=== PATIENT | male | born 1985 | race Caucasian/White ===

== ENCOUNTER 2024-10-20 20:39 | Emergency (ER) | payer BC, SELFPAY ==
[2024-10-20 20:41] VITALS: BP 171/129; PULSE 87; RESP 18; TEMP 36.2; O2SAT 98
--- NOTE | 2024-10-20 21:33 | W.ED.GENAD ---
Discharge Plan Disposition Patient Disposition: Home Condition: Stable Discharge Details Clinical Impression: Abscess, periapical Primary Care Provider: Ayesha,Local ED Provider: Cassandra Hernandez Home Meds and New Rx's Prescriptions: New amoxicillin-pot clavulanate 875-125 mg tablet 1 tab PO BID 10 Days Qty: 20 0RF No Action gabapentin 600 mg tablet 600 mg PO TID hydroxyzine HCl 25 mg tablet 25 mg PO ONCE lisinopril 5 mg tablet 5 mg PO DAILY citalopram [Celexa] 20 mg tablet 20 mg PO DAILY bupropion HCl 300 mg tablet extended release 24 hr 300 mg PO DAILY Discharge Instructions Instructions: Tooth Abscess (DC) Additional Instructions: You were seen in the emergency department today for evaluation of a dental abscess. In our department you had a full physical examination performed and a dental block. Your abscess was drained and you were started on antibiotics. Please take these medications twice a day until they are gone, even if you start to feel better. You do need to follow-up with your dental provider, I recommend giving them a call tomorrow or Wednesday if they are not open over the weekend. There are unfortunately very few emergency dentists in [place]. Please maintain good hydration and nutrition. Please use therapeutic dosing of Tylenol (acetaminophen) & Advil (ibuprofen) in an alternating fashion as follows: Take 1000mg of Tylenol every 6 hours without missing doses- that is 4 times per day. [place] in between the Tylenol doses, take 600mg of Advil also on a 6 hour schedule, that is also 4 times per day. With this strategy, you will be taking something for fever/pain as often as every 3 hours. The daily maximum dosing of Tylenol is 4000mg, and the daily maximum dosing of Advil is 2400mg. Please note that some common cold medications & prescription pain medications may contain acetaminophen and you need to read OTC drug labels and factor that in to maximum daily doses. Please follow-up with your primary care provider in the next few days to discuss this visit and any symptoms that change, worsen, or persist. Thank you for allowing us to be part of your care. HPI General Mode of arrival: ambulatory. Date/Time Provider Initiated Documentation: 10/20/24 20:47. Limitations to Documentation: no limitations. Information obtained by: patient, family and old records reviewed. HPI Narrative: This is a 39-year-old male patient presenting for evaluation of dental pain and abscess. He reports that his right lower molar has been fractured for several years, he recently got dental insurance back and had a cleaning and since that time has had some increased discomfort. For 24 hours he has noted a significant amount of swelling adjacent to the tooth. He states that he has not had a fever but does feel rundown. He has been able to eat and drink, swallow, and move his eyes and neck. No difficulty or pain with swallowing. He states that he is not currently taking antibiotics but has been using ibuprofen and his home gabapentin for pain management. He was recently started on lisinopril, and his high blood pressure did delay extraction at the oral surgeon with whom he follows. Related Data Home Medications ?Medication ?Instructions ?Recorded ?Confirmed amoxicillin 875 mg-potassium 1 tab PO BID 10 days #20 tabs 10/20/24 clavulanate 125 mg tablet bupropion HCl 300 mg 24 hr tablet, 300 mg PO DAILY 10/20/24 10/20/24 extended release citalopram 20 mg tablet (Celexa) 20 mg PO DAILY 10/20/24 10/20/24 gabapentin 600 mg tablet 600 mg PO TID 10/20/24 10/20/24 hydroxyzine HCl 25 mg tablet 25 mg PO ONCE 10/20/24 10/20/24 lisinopril 5 mg tablet 5 mg PO DAILY 10/20/24 10/20/24 Previous Rx's ?Medication ?Instructions ?Recorded amoxicillin 875 mg-potassium 1 tab PO BID 10 days #20 tabs 10/20/24 clavulanate 125 mg tablet Allergies Allergy/AdvReac Type Severity Reaction Status Date / Time No Known Allergies Allergy Unverified 10/20/24 20:46 General Stated Complaint: DentalOral GUILLAUME: 4 Exam Narrative Exam Narrative: Gen: Awake and alert, in no apparent distress HEENT: Non-icteric sclera, EOMs are full, PERRL. Midface is stable and without swelling, redness, or induration. The patient has an approximately 2 x 1 cm periapical abscess adjacent to tooth #30, otherwise he has fairly good dentition, no other abscesses or dental infections visualized. Floor of mouth is soft, no trismus noted, posterior pharynx unremarkable. Neck: Supple, full range of motion, right sided anterior cervical and submental lymphadenopathy, mild Lungs: No apparent respiratory distress, normal respiratory effort. CV: Appears well perfused, strong distal pulses Abdomen: Non-distended MSK: Moves 4 extremities without apparent limitation in ROM Skin: Visualized skin without rashes, cyanosis. Neuro: Normal Gait, no obvious focal deficits or facial asymmetry. Speaks in full, clear sentences. Psych: Appropriate for situation. Course Vital Signs Vital signs: Vital Signs Temperature 36.2 C L 10/20/24 20:41 Pulse 87 10/20/24 20:41 Respiratory Rate 18 10/20/24 20:41 Blood Pressure 171/129 H 10/20/24 20:41 Pulse Oximetry 98 10/20/24 20:41 Temperature 36.2 C L 10/20/24 20:41 Temperature Source Tympanic 10/20/24 20:41 Pulse 87 10/20/24 20:41 Respiratory Rate 18 10/20/24 20:41 Blood Pressure 171/129 H 10/20/24 20:41 Pulse Oximetry 98 10/20/24 20:41 Oxygen Delivery Method Room Air 10/20/24 20:41 Oxygen Flow Rate 0 10/20/24 20:41 Pain Level 6 10/20/24 20:41 Procedure Abscess Drainage Date of Procedure: 10/20/24 Time of Procedure: 22:15 Provider that performed the procedure: Cassandra Hernandez Patient Consented: Verbally Location of Exam: Oral Indication: Abscess. Local anesthetic: Bupivicaine 0.5%, Amount of Local Anesthetic Used(mL): 2. Sterility: Non Sterile. Procedure Prep: Hand hygiene, Surgical Mask and 11 blade. Technique used incised with blade. Amount of fluid expressed(mL): 2. Irrigation: No irrigation Packing: None. Outcome: Sucessful Procedure Description/Note: After nerve block as noted below, an 11 blade was used to perform a stab incision into the periapical abscess adjacent to tooth #30. Immediate expression of purulent material was noted, and was suctioned. The abscess was manually expressed until all purulent discharge had been removed. The patient was able to swish and rinse his mouth, bleeding was controlled, and he tolerated the procedure well without any immediate complications. Nerve Block 1st Nerve Block: Date of Procedure: 10/20/24 Time of procedure: 22:00 Provider that performed the procedure: Cassandra Hernandez Indication: Anesthesia and Procedural Patient Consented: Verbally Local Anesthetic: Bupivicaine 0.5% Amount of anethetic used(mL): 2 Sterility: Non Sterile Laterality: Right Intraoral Nerve Block: inferior alveolar Ultrasound: Not used Paresthesia: None Procedure Tolerated: No Complications and Patient tolerated well Procedure Outcome: Successful Procedure Description/Note: 2% lidocaine soaked Q-tips were applied to the retromolar fossa for several minutes. The buccal tissue was retracted and the pterygomandibular triangle was visualized. A 25-gauge needle was advanced into that space approximately 1 cm above the molar. Phone was contacted, and 2 mL of 0.5 bupivacaine was slowly injected while withdrawing the needle. The patient was reevaluated after approximately 15 minutes with excellent oral anesthesia achieved. Medical Decision Making This is a 39-year-old male patient presenting for evaluation of dental abscess. My differential includes but is not limited to periapical abscess, the patient's fractured tooth is certainly the likely source, though the duration of time that he has had this fractured tooth makes it the unlikely source of the entirety of his pain. I note no evidence for deep space infection such as Charles's angina, [employer] or RPA. He is hemodynamically and systemically well without any evidence of sepsis or bacteremia. The patient had a inferior alveolar nerve block and abscess drainage performed by this provider as noted above. He tolerated the procedure well and tolerated oral intake afterwards. I started him on Augmentin and he will follow-up with his oral surgeon to discuss extraction and definitive management. At this time, the patient has had a full medical evaluation and is safe for discharge to home. They are hemodynamically stable, ambulatory, and tolerating PO. They are understanding of the follow-up plan and return precautions. They left our facility without incident. Cassandra Hernandez MD [facility] All Active Problems (Updated 10/20/24 @ 22:11 by Cassandra Hernandez MD) Abscess, periapical (Acute) Social History Smoking/Tobacco Use Status: Current every day Smoking risk assessment performed?: Yes Alcohol Intake: never Drug use: Never Substance use type: does not use Housing: house Do you feel safe at home: Yes Do you feel safe in your relationship?: Yes POCUS Exam (ED) Limited Soft Tissue Exam PROVIDER THAT PERFORMED THE STUDY: Cassandra Hernandez
[2024-10-20] MEDS: Bupivacaine 0.5% Pres-Free 30 ML VIAL (21:37)
[2024-10-20] MEDS: Amoxicillin 875/Clav. 125 TAB PO (23:01)
== END 2024-10-20 23:01 | disposition home or self-care (01) ==
PROVIDERS: Emergency Provider Emergency Medicine
DX: K04.7 Periapical abscess without sinus (principal); R22.0 Localized swelling, mass and lump, head
CPT/HCPCS: 40800; 64400; 99284 ×2; J0665